=== PATIENT | female | born 1985 | race Caucasian/White ===

== ENCOUNTER 2024-03-21 07:05 | Inpatient (IN) | payer OTHER ==
[~2024-03-21] VITALS: Ht 152.4 cm; Wt 62.6 kg
[2024-03-21] MEDS ORDERED: CITRIC ACID/SODIUM CITRATE 30 ML UDC PO SCH (07:15)
[2024-03-21 07:41] LABS: BASOPHILS % (AUTO) 0.4 % (0.0-2.0); EOSINOPHILS % (AUTO) 0.3 % (0.0-4.0); HEMATOCRIT 40.7 % (36-48); LYMPHOCYTES # (AUTO) 1.8 K/uL (2.5-16.5); LYMPHOCYTES % (AUTO) 26.8 % (20.5-51.1); MEAN CORPUSCULAR HEMOGLOBIN 34 pg (27-31); MEAN CORPUSCULAR HGB CONC 34 g/dL (33-37); MEAN CORPUSCULAR VOLUME 99.4 fL (80-94); MONOCYTES # (AUTO) 0.5 K/uL (0.8-1.0); MONOCYTES % (AUTO) 7.9 % (1.7-9.3); NEUTROPHILS # (AUTO) 4.4 K/uL (1.8-7.7); NEUTROPHILS % (AUTO) 64.6 % (42.2-75.2); PLATELET COUNT (AUTO) 137 K/uL (140-450); RED BLOOD CELL COUNT(AUTO) 4.09 MIL/uL (4.20-5.40); RED CELL DISTRIBUTION WIDTH 13.5 % (11.6-13.7); WHITE BLOOD COUNT (AUTO) 6.9 K/uL (4.8-10.8)
[2024-03-21 07:55] LABS: APPEARANCE,URINE CLEAR (CLEAR); BILIRUBIN,URINE NEGATIVE (NEGATIVE); BLOOD, URINE NEGATIVE (NEGATIVE); COLOR,URINE YELLOW (YELLOW); LEUKOCYTE ESTERASE ,URINE NEGATIVE (NEGATIVE); NITRITE, URINE NEGATIVE (NEGATIVE); PROTEIN,URINE NEGATIVE (NEGATIVE); UGLUCOSE NEGATIVE (NEGATIVE); UROBILINOGEN,URINE 0.2 EU/dL (0.2 - 1)
[2024-03-21 08:01] LABS: ALBUMIN 2.4 g/dL (3.4-5.0); ANION GAP 15.6 (8-16); CARBON DIOXIDE 20.5 mmol/L (21-32); CREATININE 0.8 mg/dL (0.6-1.3); POTASSIUM 4.1 mmol/L (3.5-5.1); TOTAL BILIRUBIN 0.6 mg/dL (0.0-1.0); TOTAL PROTEIN, SERUM 6.9 g/dL (6.4-8.2)
[2024-03-21 08:11] LABS: INR 0.88 (0.8-1.2); PROTHROMBIN TIME 9.3 secs (10.8-13.4)
[2024-03-21] MEDS: LACTATED RINGERS 1,000 ML IV SCH (08:24)
[2024-03-21 08:25] VITALS: BP 113/62; PULSE 67; RESP 18; TEMP 98.4; O2SAT 97
[2024-03-21] MEDS ORDERED: MORPHINE PRES FREE 5 MG/10 ML AMP IV ONE (10:08)
[2024-03-21] MEDS ORDERED: fentaNYL citrate 0.05 MG/ML VIAL ONE (10:08)
[2024-03-21] MEDS ORDERED: TEMAZEPAM 15 MG CAP PO PRN (11:55)
[2024-03-21] MEDS ORDERED: METHYLERGONOVINE 0.2 MG/ML AMP IM PRN (11:55)
[2024-03-21] MEDS ORDERED: OXYTOCIN 20 UNITS in LACTATED RINGERS 1,000 ML IV SCH (11:55)
[2024-03-21] MEDS ORDERED: KETOROLAC 30 MG/ML VIAL IVP PRN (11:55)
[2024-03-21] MEDS: ceFAZolin 2,000 MG VIAL ONE (12:35)
[2024-03-21] MEDS ORDERED: KETOROLAC 60 MG/2 ML VIAL IM PRN (13:00)
[2024-03-21] MEDS ORDERED: NALOXONE 0.4 MG/ML VIAL IVP PRN (13:00)
[2024-03-21] MEDS ORDERED: ONDANSETRON 4 MG/2 ML VIAL IVP PRN (13:00)
[2024-03-21] MEDS: diphenhydrAMINE 50 MG/ML VIAL IVP PRN (13:45)
[2024-03-21] MEDS: OXYTOCIN/0.9 % SODIUM CHLORIDE 500 ML IV SCH (13:47)
[2024-03-21] MEDS ORDERED: PRETAB PO (14:20)
[2024-03-21] MEDS: DOCUSATE SOD/SENNA 50/8.6 MG 1 TAB PO SCH (21:00)
[2024-03-21] MEDS ORDERED: MEDS-TO-BEDS MC SCH (21:00)
[2024-03-21] MEDS ORDERED: oxyCODONE/APAP 5/325 MG 1 TAB TAB PO PRN (23:00)
[2024-03-22 05:29] LABS: BASOPHILS % (AUTO) 0.3 % (0.0-2.0); HEMATOCRIT 39.4 % (36-48); HEMOGLOBIN 13.5 g/dL (12.0-16.0); LYMPHOCYTES # (AUTO) 1.4 K/uL (2.5-16.5); LYMPHOCYTES % (AUTO) 8.5 % (20.5-51.1); MEAN CORPUSCULAR HEMOGLOBIN 34 pg (27-31); MEAN CORPUSCULAR HGB CONC 34 g/dL (33-37); MEAN CORPUSCULAR VOLUME 99.2 fL (80-94); MONOCYTES # (AUTO) 0.8 K/uL (0.8-1.0); MONOCYTES % (AUTO) 4.7 % (1.7-9.3); NEUTROPHILS # (AUTO) 14.3 K/uL (1.8-7.7); NEUTROPHILS % (AUTO) 86.5 % (42.2-75.2); PLATELET COUNT (AUTO) 128 K/uL (140-450); RED BLOOD CELL COUNT(AUTO) 3.97 MIL/uL (4.20-5.40); RED CELL DISTRIBUTION WIDTH 13.6 % (11.6-13.7); WHITE BLOOD COUNT (AUTO) 16.5 K/uL (4.8-10.8)
[2024-03-22] MEDS: oxyCODONE/APAP 5/325 MG 1 TAB TAB PO PRN (08:30)
[2024-03-22] MEDS: IBUPROFEN 800 MG TAB PO PRN (10:53)
[2024-03-22] MEDS ORDERED: CAMERA MC ONE (19:27)
[2024-03-23] MEDS: SIMETHICONE 80 MG TAB.CHEW PO PRN (13:40)
== END 2024-03-23 15:20 | disposition home or self-care (01) | DRG 540 ==
LOC: MLD 07:05 → MFCC 14:24
PROVIDERS: ADMIT Obstetrics & Gynecology; ATTEND Obstetrics & Gynecology
PROC: 10D00Z1 Extraction of Products of Conception, Low, Open Approach (ICD-10-PCS; principal; 2024-03-21 12:30)
DX: O34.211 Maternal care for low transverse scar from previous cesarean delivery (principal); Z37.0 Single live birth; Z3A.38 38 weeks gestation of pregnancy
CPT/HCPCS: 36415; 80053; 81003; 85025; 85610; 85730; 86592; 86886; 86900; 86901; 87081; 90715; J1200; J2590; J3010